=== PATIENT | female | born 1945 | race Caucasian/White ===

== ENCOUNTER → 2018-01-12 | Day surgery (SDC) | payer MEDICARE, OTHER ==
[2018-01-11 12:04] LABS: BASOPHILS # (AUTO) 0.1 (0.0-0.1); BASOPHILS % 0.4 % (0.0-1.0); EOSINOPHILS # (AUTO) 0.3 (0.0-0.4); EOSINOPHILS % 2.5 % (0.0-6.0); HEMATOCRIT 34.2 % (34.2-44.1); LYMPHOCYTES # (AUTO) 1.5 (1.0-3.2); MEAN CORPUSCULAR HEMOGLOBIN 28.5 pg (28-32); MEAN CORPUSCULAR HGB CONC 32.2 g/dL (31-35); MEAN CORPUSCULAR VOLUME 88.6 fL (81-99); MONOCYTES % 7.7 % (4.4-11.3); NEUTROPHILS # (AUTO) 9.7 (2.1-6.9); NEUTROPHILS % 76.9 % (38.7-80.0); PLATELET COUNT 252 x10e3/uL (140-360); RED BLOOD COUNT 3.86 x10e6/uL (3.6-5.1); RED CELL DISTRIBUTION WIDTH 15.6 % (11.7-14.4)
[2018-01-11 12:22] LABS: ANION GAP 12.2 mmol/L (8-16); CALCIUM 9.6 mg/dL (8.4-10.2); CREATININE, SERUM 1.55 mg/dL (0.57-1.11); POTASSIUM 4.2 mmol/L (3.5-5.1)
--- NOTE | 2018-01-11 12:39 | Diagnostic Imaging Report ---
PROCEDURE:CHEST 2 VIEWS TECHNIQUE:PA and lateral chest INDICATION:Preoperative evaluation for wrist and ankle surgery. COMPARISON:None. FINDINGS: The lungs are clear and symmetrically inflated. No pleural effusions. Normal heart size. Mildly prominent central vasculature. Aortic arch calcification. Acutely intact skeleton. Subacute appearing insufficiency fracture at the superior endplate of the lower thoracic spine, possibly T12. CONCLUSION: No acute abnormality. Upper limits of normal heart size with mild central vascular congestion. Dictated by: Clarke Grimm M.D. on 01/11/2018 at 12:42 Electronically approved by: Clarke Grimm M.D. on 01/11/2018 at 12:42
[~2018-01-12] MED LIST: ACETAMINOPHEN 1000 MG/100 ML IV ONE; ALBUTEROL2.5 MG/0.5 INH; AMLODIPINE BESY10 MG PO; ANASTROZOLE1 MG PO; BACITRACIN 50,000 UNIT VIAL ONE; BUPIVACAINE HCL 0.5% INJ 30 ML VIAL INJ ONE; CEFAZOLIN SOD 2 GM/D5W 50ML 50 ML IV ONE; DESFLURANE 240 ML BTL INH ONE; DEXAMETHASONE SOD PHOS INJ 4 MG/ML VIAL ONE; DIOVAN HCT 3201 EACH PO; FENTANYL CITRATE/PF 100MCG/2 ML INJ ONE; LIDOCAINE HCL 2% LOCAL INJ 5 ML SDV VIAL INJ ONE; MIDAZOLAM HCL 2 MG/2 ML VIAL ONE; ONDANSETRON HCL INJ 2 MG/ML VIAL ONE; PROAIR HFA INH8.5 GM INH; PROPOFOL IV EMULSION 10 MG/ML 20 ML VIAL ONE; SYMBICORT 16010.2 GM INH
--- OUTSIDE RECORDS SUMMARY | 2018-01-12 11:35 | XMS REPORT ---
Author Author [facility] Address Unknown Phone Unavailable Care Team Providers Care Scallop Binder Name Role Phone MANDO ABDULLAHI Unavailable Unavailable Problems This patient has no known problems. Allergies, Adverse Reactions, Alerts This patient has no known allergies or adverse reactions. Medications This patient has no known medications. Results Test Description Test Time Test Comments Text Results Atomic Results Result Comments CHEST [address] [address] Patient Name: BOONE GUILLORY MR #: [id number] : 1945 Age/Sex: 72/F Req #: [id number] Adm Physician: Ordered by: MANDO ABDULLAHI MD Report #: [id number] Location: OR Room/Bed: Procedure: DX/CHEST 2 VIEWS Exam Date: Exam Time: REPORT STATUS: Signed PROCEDURE: CHEST 2 VIEWS TECHNIQUE: PA and lateral chest INDICATION: Preoperative evaluation for wrist and ankle surgery. COMPARISON: None. FINDINGS: The lungs are clear and symmetrically inflated. No pleural effusions. Normal heart size. Mildly prominent central vasculature. Aortic arch calcification. Acutely intact skeleton. Subacute appearing insufficiency fracture at the superior endplate of the lower thoracic spine, possibly T12. CONCLUSION: No acute abnormality. Upper limits of normal heart size with mild central vascular congestion. Dictated by: Campos Grimm M.D. on 01/11/2018 at 12:42 Electronically approved by: Campos Grimm M.D. on 2017 at 12:42 Dictated By: CAMPOS GRIMM MD [id number] Transcribed By: SEVEN on 124 COPY TO: MANDO ABDULLAHI MD
--- NOTE | 2018-01-13 13:06 | Operative Report ---
DATE OF PROCEDURE: January 12, 2018 PREOPERATIVE DIAGNOSES 1. Bimalleolar equivalent ankle fracture on the right. 2. A left displaced small finger metacarpal fracture. 3. Displaced left ring finger proximal phalanx fracture. POSTOPERATIVE DIAGNOSES 1. Bimalleolar equivalent ankle fracture on the right. 2. A left displaced small finger metacarpal fracture. 3. Displaced left ring finger proximal phalanx fracture. OPERATIONS/PROCEDURES PERFORMED: The patient underwent a closed reduction of the right ankle mortise followed by open reduction internal fixation of the right fibular fracture followed by an open reduction internal fixation of the left small finger metacarpal fracture followed by open reduction internal fixation of the left ring finger proximal phalanx fracture with allograft bone grafting of the left ring finger proximal phalanx fracture. METAL CONTROL COORDINATOR: None. ANESTHESIA: General endotracheal intubation anesthesia. IV FLUIDS: Per the anesthesia record. BLOOD LOSS: Minimal. BRIEF DESCRIPTION OF THE PATIENT'S OPERATIVE PROCEDURE: Ms. Keller was taken to the operating room and placed in the supine position on the operating table. Following induction of general anesthesia, as well as endotracheal intubation, the patient's right lower extremity was examined under anesthesia. She was found to have a mild degree of swelling about the ankle joint. Fluoroscopic evaluation of the ankle joint demonstrated a bimalleolar equivalent ankle fracture with widening of the ankle mortise. Examination of the hand demonstrated bruising and swelling about the hand. Fluoroscopy of the hand demonstrated a displaced oblique fracture of the left small finger metacarpal, and a long oblique fracture of the left ring finger proximal phalanx. The upper and lower extremity were prepped and draped in a standard surgical fashion. The case was begun by approaching the ankle. A incision was carried over the fibula. This incision was carried through skin only. Blunt dissection was used to the deepen the incision to the level of the fibular fracture. The fibular fracture was cleaned, reduced and held in place with a fracture reduction clamp. A single screw was then placed from anterior to posterior providing interfragmentary compression. A plate was then chosen and affixed to the lateral aspect of the fibula, and affixed with combinations of both cortical and locking screws. Fluoroscopic evaluation of the ankle joint demonstrated reduction of the ankle mortis and stabilization the patient's ankle fracture. The wound was copiously irrigated and closed in a multilayer fashion. Sterile dressings were applied. Attention was then turned to the patient's left hand. An incision was created over the small finger metacarpal. This incision was carried through skin only. Blunt dissection was used to deepen the incision to the level of the fracture site. Retractors were used to protect the extensor tendons. The fracture site was cleaned. Distraction and rotation was placed distally through the small finger. The fracture was held in place with a fracture reduction clamp. Multiple interfragmentary screws were then placed through the fracture stabilizing the injury. The small finger was placed through a range of motion. There was no instability of the fracture. Attention was then turned the small finger proximal phalanx fracture. An incision was created over the dorsum of the small finger. This incision was carried through skin only. Blunt dissection was used to deepen the incision. The extensor tendon was then were divided in line with the skin incision. Fracture callous was removed. The fracture was reduced and held in place with a fracture reduction clamp. Again, multiple interfragmentary screws were placed to transfixing the fracture in its reduced position and providing compression across the injury. Fluoroscopic evaluation of the hand demonstrated acceptable realignment of each injury with multiple interfragmentary screws stabilizing the injury. Allograft bone graft was placed over the fracture site. The wounds were closed in multilayer fashions. Splints were applied to both the left upper and the right lower extremity. The patient was then awakened and taken to the postanesthesia care unit in stable condition. Job#: [id number] NEL ASIF
== END | disposition home or self-care (01) ==
LOC: OR 11:33
PROVIDERS: ATTEND Specialist
DX: S82.841A Displaced bimalleolar fracture of right lower leg, initial encounter for closed fracture (principal); S62.307A Unspecified fracture of fifth metacarpal bone, left hand, initial encounter for closed fracture; S62.615A Displaced fracture of proximal phalanx of left ring finger, initial encounter for closed fracture; J44.9 Chronic obstructive pulmonary disease, unspecified; I10 Essential (primary) hypertension; K21.9 Gastro-esophageal reflux disease without esophagitis; N39.0 Urinary tract infection, site not specified; Z91.041 Radiographic dye allergy status; Z91.048 Other nonmedicinal substance allergy status; X58.XXXA Exposure to other specified factors, initial encounter; Z01.810 Encounter for preprocedural cardiovascular examination; Z01.812 Encounter for preprocedural laboratory examination; Z01.818 Encounter for other preprocedural examination
CPT/HCPCS: 26615; 26735; 27792; 36415; 71046; 80048; 85025; 93005; C1713 ×8; J1100; J2001; J2250; J2405; 76001

== ENCOUNTER → 2018-01-28 | Day surgery (SDC) | payer MEDICARE, OTHER ==
[~2018-01-28] MED LIST changes: -ACETAMINOPHEN 1000 MG/100 ML IV ONE; -DESFLURANE 240 ML BTL INH ONE; +SEVOFLURANE INHAL SOLN 250 ML PEN BTL ONE
--- NOTE | 2018-01-29 20:13 | Operative Report ---
DATE OF PROCEDURE: January 28, 2018 PREOPERATIVE DIAGNOSIS: Failed hardware left small finger metacarpal fracture. POSTOPERATIVE DIAGNOSIS: Failed hardware left small finger metacarpal fracture. OPERATION/PROCEDURE PERFORMED: Patient underwent removal of failed hardware from the left small finger metacarpal fracture and open reduction, internal fixation of the left small finger metacarpal fracture and allograft bone grafting of the left small finger metacarpal fracture. ASSIST: None. ANESTHESIA: General endotracheal intubation anesthesia. IV FLUIDS: Per the anesthesia record. BRIEF DESCRIPTION OF OPERATIVE PROCEDURE: Ms. Keller was taken to the operating room placed in supine position on operating table. Following induction of general anesthesia, as well as endotracheal intubation. The patient's left upper extremity was prepped and draped in the standard surgical fashion. Examination of the left upper extremity demonstrated well-healed incisions overlying the small finger metacarpal, as well as the ring finger proximal phalanx. Fluoroscopic evaluation of the hand demonstrated a reduced and well fixed ring finger proximal phalanx fracture. The patient's small finger metacarpal fracture demonstrated displacement of a previously fixed metacarpal injury with 3 screws. The previous incision was well-healed, but it was used as the entry point for the surgery. The incision was opened without difficulty. Significant scar tissue was identified in the subcutaneous tissues and this was freed using tenotomy scissors. The extensor tendon was mobilized and retracted in an ulnar direction exposing the patient's metacarpal injury. The screws that had previously been used to maintain the fracture's alignment were removed. The fracture site was cleaned and reduced and held in place with a fracture reduction clamp. A plate was chosen to stay on the patient's fracture site. This was then contoured and affixed to the bone with combinations of both cortical and locking screws. This resulted in ready stabilization of the patient's metacarpal injury. Fluoroscopic evaluation at multiple planes demonstrated anatomic realignment of the injury. There was some comminution of the distal fracture fragment segment and this was bone grafted with Joey putty. The wound was then closed in a multilayer fashion. Sterile dressings were applied, as well as a well-padded ulnar gutter splint. The patient was then awakened and taken to the post anesthesia care unit in stable condition. Job#: [id number] CQ
== END | disposition home or self-care (01) ==
LOC: OR 05:42
PROVIDERS: ATTEND Specialist
DX: T84.418A Breakdown (mechanical) of other internal orthopedic devices, implants and grafts, initial encounter (principal); S62.327S Displaced fracture of shaft of fifth metacarpal bone, left hand, sequela; C50.919 Malignant neoplasm of unspecified site of unspecified female breast; J44.9 Chronic obstructive pulmonary disease, unspecified; I10 Essential (primary) hypertension; E66.01 Morbid (severe) obesity due to excess calories; K21.9 Gastro-esophageal reflux disease without esophagitis; N39.0 Urinary tract infection, site not specified; Y83.8 Other surgical procedures as the cause of abnormal reaction of the patient, or of later complication, without mention of misadventure at the time of the procedure; W01.198S Fall on same level from slipping, tripping and stumbling with subsequent striking against other object, sequela; Y92.003 Bedroom of unspecified non-institutional (private) residence as the place of occurrence of the external cause; Z91.048 Other nonmedicinal substance allergy status; Z88.5 Allergy status to narcotic agent; Z68.41 Body mass index [BMI] 40.0-44.9, adult
CPT/HCPCS: 26615; 26989; C1713 ×4; J1100; J2001; J2250; J2405; 76001

== ENCOUNTER 2018-04-01 09:59 | Outpatient (RCR) | payer MEDICARE, OTHER ==
[~2018-04-01 09:59] MED LIST changes: -BACITRACIN 50,000 UNIT VIAL ONE; -BUPIVACAINE HCL 0.5% INJ 30 ML VIAL INJ ONE; -CEFAZOLIN SOD 2 GM/D5W 50ML 50 ML IV ONE; -DEXAMETHASONE SOD PHOS INJ 4 MG/ML VIAL ONE; -FENTANYL CITRATE/PF 100MCG/2 ML INJ ONE; -LIDOCAINE HCL 2% LOCAL INJ 5 ML SDV VIAL INJ ONE; -MIDAZOLAM HCL 2 MG/2 ML VIAL ONE; -ONDANSETRON HCL INJ 2 MG/ML VIAL ONE; -PROPOFOL IV EMULSION 10 MG/ML 20 ML VIAL ONE; -SEVOFLURANE INHAL SOLN 250 ML PEN BTL ONE
== END 2018-04-09 ==
LOC: OT 09:59
PROVIDERS: ATTEND Specialist
DX: S82.891A Other fracture of right lower leg, initial encounter for closed fracture (principal); M25.671 Stiffness of right ankle, not elsewhere classified; R26.2 Difficulty in walking, not elsewhere classified; S62.605A Fracture of unspecified phalanx of left ring finger, initial encounter for closed fracture; S62.601A Fracture of unspecified phalanx of left index finger, initial encounter for closed fracture; M62.81 Muscle weakness (generalized); R53.81 Other malaise
CPT/HCPCS: 97010 ×4; 97110 ×10; 97161; 97165; G8978; G8979; G8987; G8988

== ENCOUNTER 2018-04-13 17:30 | Outpatient (RCR) | payer MEDICARE, OTHER | END 2018-05-09 | LOC: OT 17:30 | PROVIDERS: ATTEND Specialist | DX: S82.891A Other fracture of right lower leg, initial encounter for closed fracture (principal); S62.605A Fracture of unspecified phalanx of left ring finger, initial encounter for closed fracture; S62.607A Fracture of unspecified phalanx of left little finger, initial encounter for closed fracture | CPT/HCPCS: 97139 ==

== ENCOUNTER → 2019-07-06 | Outpatient (CLI) | payer MEDICARE, OTHER ==
--- NOTE | 2019-07-06 18:26 | Diagnostic Imaging Report ---
Ventilation/perfusion lung scan Reason for exam: Pulmonary emboli Comparison: None Discussion: Xenon-133 gas 10 mCi was administered via inhalation. Dynamic images of the lungs in the posterior projection were obtained through single breath, equilibrium, and washout phases. Distribution of tracer activity is irregular throughout the lungs. There are no segmental ventilatory defects. Washout of tracer is diffusely delayed with bibasilar air trapping. Perfusion images of the lungs were obtained in multiple projections following intravenous administration of approximately 6.6 mCi of Tc-99m MAA. Distribution of tracer is irregular throughout the lungs. The contours of the lungs are well demarcated. There are no segmental perfusion defects of any size. The cardiomediastinal silhouette is unremarkable. Impression: 1. Scan findings represent a VERY LOW probability for acute pulmonary embolic disease based on the PIOPED II criteria. 2. Scan evidence of obstructive lung disease. Signed by: Dr. Florence Thompson M.D. on 07/06/2019 6:22 PM
== END ==
LOC: NM 13:24
PROVIDERS: ATTEND Internal Medicine Critical Care Medicine
DX: I26.99 Other pulmonary embolism without acute cor pulmonale (principal)
CPT/HCPCS: 78582; A9540; A9558